=== PATIENT | male | born 1950 | race Caucasian/White ===

== ENCOUNTER 2016-06-10 11:12 | Observation (INO) ==
[2016-06-10] MEDS ORDERED: Vancomycin 1,000 MG in D5% in Water 250 ML IVPB ONE (11:26)
[2016-06-10] MEDS ORDERED: *HR* HYDROmorphone (PF) 1 MG/ML SYRINGE IVP ONE ×2 (11:28→13:32)
[2016-06-10] MEDS ORDERED: Ertapenem 1,000 MG in 0.9 % Sodium Chloride Mini Bag 100 ML IVPB STA (11:46)
[2016-06-10] MEDS ORDERED: Ondansetron 4 MG/2 ML VIAL IV ONE (11:52)
--- NOTE | 2016-06-10 11:56 | Emergency Department Note ---
Disposition Clinical Impression: Abdominal infection Disposition: Admitted As Inpatient Condition: Fair Referrals: NO,PCP [Non-Partnered Physician] - Time of Disposition: 15:17 General Adult HPI - General Chief complaint: ED Nausea/Vomiting/Diarrhea Stated complaint: n/v since inguinal hernia surgery last friday Time Seen by Provider: 06/10/16 11:17 Source: EMS Limitations: no limitations Nursing Notes Reviewed: Yes Vital Signs Reviewed: Yes - History of Present Illness HPI Narrative: Patient had right inguinal hernia surgery on Friday. States that he has not been able to eat or drink since then. Is complaining of nausea vomiting and abdominal pain. Does report passing blood yesterday per rectum. Denies any urinary complaints. Pain Scale: 9 - Related Data Home Medications Medication Instructions Recorded Confirmed Docusate [Colace] 100 mg PO DAILY PRN 06/06/16 06/06/16 Lactulose 10 gm PO DAILY 06/06/16 06/06/16 Polyethylene Glycol 3350 [MiraLAX] 17 gm PO DAILY 06/10/16 06/10/16 Previous Rx's Medication Instructions Recorded HYDROcodone/Acet 5/325 mg [[place] 1 tab PO Q4H PRN #30 tab 06/07/16 5-325 mg] Allergies Allergy/AdvReac Type Severity Reaction Status Date / Time aspirin Allergy Anaphylaxis Verified 06/10/16 14:27 NSAIDS (Non-Steroidal Allergy Anaphylaxis Verified 06/10/16 14:27 Anti-Inflamma Penicillins Allergy Anaphylaxis Verified 06/10/16 14:27 tramadol [From Ultram] Allergy Anaphylaxis Verified 06/10/16 14:27 Review of Systems: Patient denies any fevers or chills. He does report not being able to eat or drink Friday. He also reports nausea vomiting and abdominal pain diffusely since Friday. He did have right inguinal hernia surgery on Friday. He reports passing bright red blood per rectum yesterday. Denies any today. Denies any urinary symptoms or burning when urinating. He denies any shortness of breath or chest pain. He denies any swelling or edema to his extremities. He reports nausea and vomiting since Friday. All systems ED: reviewed and negative except as stated. Past Medical History - Past Medical History Medical history: Reports: coronary artery disease, myocardial infarction Surgical history: Reports: other Psychiatric history: Reports: no psych history - Social History Smoking Status: Former smoker Smokeless Tobacco Status: No Alcohol use: Reports: none Drug use: Reports: none Physical Exam - General Limitations: no limitations General appearance: alert, in no apparent distress - Head Head exam: atraumatic, normocephalic, normal inspection - Eye Eye exam: Present: normal appearance, PERRL, EOMI. Absent: scleral icterus - ENT ENT exam: normal exam, normal oropharynx, mucous membranes moist - Neck Neck exam: Present: normal inspection, full ROM, trachea midline - Chest Chest inspection: Present: normal inspection, symmetric chest wall rise - Respiratory Respiratory exam: Present: normal lung sounds bilaterally. Absent: respiratory distress - Cardiovascular Cardiovascular exam: Present: regular rate, normal rhythm, normal heart sounds - Abdominal Exam Abdominal exam: Present: soft, tenderness (Exquisitely tender to palpation throughout.), normal bowel sounds, other (Well-healing wound to right inguinal area. There is skin erythema and warmth extending down to his iliac crest and up to his rib cage also expanding horizontally approximately 5 cm.). Absent: distention - Male exam: Present: normal testicular lie, other (Extreme tenderness to scrotal palpation. No reddening or swelling to penis or testicles.) - Extremities Exam Extremities exam: Present: normal inspection, full ROM, normal capillary refill. Absent: tenderness, pedal edema - Neurological Exam Neurological exam: Present: alert, oriented X3 - Psychiatric Psychiatric exam: Present: normal affect, normal mood - Skin Skin exam: Present: warm, dry, intact, normal color Course Course Narrative: Now patient presenting to the emergency department with significant right lower quadrant pain. Right inguinal hernia surgery on Friday. He states he passed blood per his rectum yesterday. He states he is having no trouble urinating. However today his abdomen is reddened and warm to touch. He states that his incision site is draining. He is nauseated and vomiting. He has been unable to eat since surgery. Patient appears ill. His abdomen is red and warm from his inguinal canal to approximately the rib cage in approximately 5 cm across his abdomen. His abdomen is exquisitely tender to palpation. His testicles are also extremely tender to palpation. Suspect an infection. He denies any fevers. We will CT patient's abdomen contact Dr. Loera insert patient on antibiotic. - Reevaluation(s) Reevaluation #1: Patient requiring pain medication IV as well as nausea medication. His abdomen does appear to be infected. On CT scan it appears as if there is air in his abdominal wall. We will admit patient for possible infection. - Consultations Consultation #1: Spoke with Dr. Loera. He agrees with the treatment plan thus far and states he will see the patient. Time: 11:50 Vital Signs Temperature 98.0 F 06/10/16 11:15 Pulse Rate 64 06/10/16 11:15 Respiratory Rate 16 06/10/16 11:15 Blood Pressure 179/87 06/10/16 11:15 O2 Sat by Pulse Oximetry 98 06/10/16 11:15 Temperature 98.0 F 06/10/16 11:15 Pulse Rate 58 06/10/16 12:46 Respiratory Rate 18 06/10/16 12:46 Blood Pressure 161/85 06/10/16 12:46 O2 Sat by Pulse Oximetry 98 06/10/16 12:46 Oxygen Delivery Oxygen Delivery Room Air Medical Decision Making - Medical Records Medical records reviewed: Yes I reviewed the patient's medical records. - Lab Data Lab results reviewed: Yes I reviewed the patient's lab results. Result diagrams: 06/10/16 12:02 06/10/16 12:02 Lab Results 06/10/16 06/10/16 06/10/16 Range/Units 12:02 12:02 12:02 WBC 5.6 (4.3-11.1) K/mcL RBC 3.59 L (4.19-5.50) M/mcL Hgb 11.6 L (12.9-16.9) g/dL Hct 32.7 L (37.5-50.1) % MCV 91.1 (83.0-100.0) fL MCH 32.3 (28.0-33.3) pg MCHC 35.5 (31.6-35.5) g/dL RDW 11.8 (11.5-14.5) % Plt Count 187 (140-400) K/mcL MPV 9.5 (9.4-12.4) fL Immature Gran % 0.7 (0-4) % Seg Neutrophils % 66.9 % Lymphocytes % 16.2 % Monocytes % 10.6 % Eosinophils % 5.2 % Basophils % 0.4 % Neutrophils # 3.8 (1.6-8.9) K/mcL Lymphocytes # 0.9 (0.6-4.6) K/mcL Monocytes # 0.6 (0.0-1.3) K/mcL Eosinophils # 0.3 (0.0-0.6) K/mcL Basophils # 0.0 (0.0-0.2) K/mcL PT 13.1 H (9.4-12.1) Seconds INR 1.2 APTT 27.3 (26.0-36.0) Seconds Sodium 140 (136-145) mEq/L Potassium 4.2 (3.5-4.5) mEq/L Chloride 105 (98-109) mEq/L Carbon Dioxide 29 (19-29) mEq/L BUN 23 (8-26) mg/dL Creatinine 0.84 (0.72-1.25) mg/dL Est GFR ( Amer) > 60 (> 60) Est GFR (Non-Af Amer) > 60 (> 60) BUN/Creatinine Ratio 27 H (6-26) Glucose 108 H (70-99) mg/dL Calculated Osmolality 294 (280-300) Lactic Acid (0.5-2.2) mmol/L Calcium 9.3 (8.6-10.8) mg/dL Phosphorus 3.7 (2.3-4.7) mg/dL Magnesium 2.0 (1.6-2.6) mg/dL Total Bilirubin 0.5 (0.2-1.2) mg/dL Direct Bilirubin 0.2 (0.0-0.5) mg/dL Indirect Bilirubin 0.3 (0.0-1.2) mg/dL AST 20 (5-34) Units/L ALT 16 (0-55) Units/L Alkaline Phosphatase 60 (38-126) Units/L Troponin I (0-0.03) ng/mL Serum Total Protein 6.8 (6.0-8.3) g/dL Albumin 3.3 L (3.5-5.0) g/dL Globulin 3.5 (2.4-3.5) g/dL Albumin/Globulin Ratio 0.9 L (1.1-2.2) Lipase 29 (8-78) Units/L 06/10/16 06/10/16 06/10/16 Range/Units 12:02 12:02 13:25 WBC (4.3-11.1) K/mcL RBC (4.19-5.50) M/mcL Hgb (12.9-16.9) g/dL Hct (37.5-50.1) % MCV (83.0-100.0) fL MCH (28.0-33.3) pg MCHC (31.6-35.5) g/dL RDW (11.5-14.5) % Plt Count (140-400) K/mcL MPV (9.4-12.4) fL Immature Gran % (0-4) % Seg Neutrophils % % Lymphocytes % % Monocytes % % Eosinophils % % Basophils % % Neutrophils # (1.6-8.9) K/mcL Lymphocytes # (0.6-4.6) K/mcL Monocytes # (0.0-1.3) K/mcL Eosinophils # (0.0-0.6) K/mcL Basophils # (0.0-0.2) K/mcL PT (9.4-12.1) Seconds INR APTT (26.0-36.0) Seconds Sodium (136-145) mEq/L Potassium (3.5-4.5) mEq/L Chloride (98-109) mEq/L Carbon Dioxide (19-29) mEq/L BUN (8-26) mg/dL Creatinine (0.72-1.25) mg/dL Est GFR ( Amer) (> 60) Est GFR (Non-Af Amer) (> 60) BUN/Creatinine Ratio (6-26) Glucose (70-99) mg/dL Calculated Osmolality (280-300) Lactic Acid 0.9 0.7 (0.5-2.2) mmol/L Calcium (8.6-10.8) mg/dL Phosphorus (2.3-4.7) mg/dL Magnesium (1.6-2.6) mg/dL Total Bilirubin (0.2-1.2) mg/dL Direct Bilirubin (0.0-0.5) mg/dL Indirect Bilirubin (0.0-1.2) mg/dL AST (5-34) Units/L ALT (0-55) Units/L Alkaline Phosphatase (38-126) Units/L Troponin I 0.01 (0-0.03) ng/mL Serum Total Protein (6.0-8.3) g/dL Albumin (3.5-5.0) g/dL Globulin (2.4-3.5) g/dL Albumin/Globulin Ratio (1.1-2.2) Lipase (8-78) Units/L - Radiology Data Radiology results reviewed: Yes I reviewed the patient's radiology results. I reviewed the images and the radiologist report. - EKG Data EKG #1 EKG attestation: Yes I reviewed and interpreted this EKG. EKG results narrative: Sinus pericardia. 57. VA interval is 171. Your incarceration is 97. QTC is 434. QTC is 428. No signs of acute ischemia. No significant changes from prior EKG dated 06/06/2016. Attestation Statement - Attestation Attestation: I examined this patient and my medical decision-making was reviewed with the HALF BACKER/PA/Advanced Practice Nurse/Resident Physician. I agree with the documented findings, disposition and treatment plan as described except to the extent set forth below. Patient to the emergency department complaining of abdominal pain and rectal bleeding. Patient states he is also vomiting and cannot hold anything down. He had an inguinal hernia repair Don[place], 3 days ago. On exam he has tenderness and erythema around the incision in the right lower quadrant. The erythema extends up past his umbilicus. It also extends down over his testicles. Very tender to palpation. Plan. IV antibiotics started. His surgeon has been notified. CT pending at this time. Patient will be admitted to the hospital.
--- NOTE | 2016-06-10 12:11 | General Surg History&Physical ---
<Jay Kim - Last Filed: 06/10/16 15:23> Date of Encounter: 06/10/16 Time of Encounter: 12:40 Assessment and Plan (1) S/P hernia repair Current Visit: No Status: Acute Abdominal pain with nausea and vomiting after right sided inguinal hernia repair on 06/06/16. CT demonstrates suspected postsurgical changes along the anterior subcutaneous fat of the RLQ, just anterior and superior to the right inguinal canal, without evidence of a dranable fluid collection or postoperative abscess. Small bilateral inguinal hernias, right greater than left, with the right containing fat and a mild amount of fluid, though no evidence of bowel involvement or incarceration. The patient was started on ertapenem and vancomycin in the ED. Continue IV antibiotics. Continue IV fluids. Clear liquid diet if tolerated. NPO at midnight. If no improvement tomorrow the patient will go to surgery. (2) Nausea and vomiting Current Visit: Yes Status: Acute Zofran PRN Qualifiers: Vomiting type: unspecified Vomiting Intractability: non-intractable Qualified Code(s): R11.2 - Nausea with vomiting, unspecified (3) Pulmonary nodule Current Visit: Yes Status: Acute Nonspecific 6mm nodule within the left lower lobe with suggested followup in 6- 12 months, then at 18-24 months if no change. (4) DVT prophylaxis Current Visit: Yes Status: Acute Heparin SQ 5000 units Q12 hrs History of Present Illness Chief complaint: nausea and vomiting after hernia repair HPI: Mr. Duran is a 65 year old male who underwent right inguinal hernia repair on with Dr. Loera. He was not able to go home the same day after surgery as he did not have anyone to stay with him following the surgery. He was kept overnight as an outpatient in a bed and went home the following day without any complaints. He had a temporary pain pump in place and was instructed to remove it the day after his discharge. He was given Vicodin 5-300MG Q6 and Colace 100MG capsules while on narcotics as needed for constipation. He now returns to the emergency department for nausea and vomiting since this past Friday. He states that no matter what he tries to eat it comes right back up. He denies fevers, but states that he is shaking almost constantly, which is out of the ordinary for him. He states he has not had access to his pain medication. The patient states some people came into his trailer claiming they knew him. The patient had to use the restroom, and when he came out his pain medication was gone. He complains of severe abdominal pain that radiates to the right side of his groin. Past Med Surg Social Fam HX - Past Medical History Medical history: coronary artery disease, myocardial infarction Psychiatric history: no psych history - Past Surgical History Surgical History: angioplasty/stent (2 cardiac stents placed), herniorrhaphy (), orthopedic, other (left arm fracture repair 1975, left arm broken and surgically repaired in 1994) - Social History Smoking Status: Former smoker Smokeless Tobacco Status: No Alcohol use: none Drug use: none - Family History Father Living Status: Hx Family Cancer: Yes (lung) Mother Living Status: Hx Family Cancer: Yes Medications and Allergies Docusate [Colace] 100 mg PO DAILY PRN 06/06/16 [History] Lactulose 10 gm PO DAILY 06/06/16 [History] HYDROcodone/Acet 5/325 mg [[place] 5-325 mg] 1 tab PO Q4H PRN #30 tab 06/07/16 [Rx ] Polyethylene Glycol 3350 [MiraLAX] 17 gm PO DAILY 06/10/16 [History] Allergies aspirin Allergy (Verified 06/10/16 14:27) Anaphylaxis NSAIDS (Non-Steroidal Anti-Inflamma Allergy (Verified 06/10/16 14:27) Anaphylaxis Penicillins Allergy (Verified 06/10/16 14:27) Anaphylaxis tramadol [From Ultram] Allergy (Verified 06/10/16 14:27) Anaphylaxis Review of Systems All systems PM: A 10-system review of systems was performed and is negative for pertinent findings except as documented above in the HPI. - Constitutional other (shakiness), no fever(s), no headache(s) - EENT Nose, mouth and throat: no headache(s), no hoarseness - Cardiovascular no chest pain, no diaphoresis, no dyspnea, no edema, no pedal edema - Respiratory cough, no dyspnea - Gastrointestinal abdominal pain (right lower quadrant), nausea, vomiting, no hematemesis, no hematochezia - Genitourinary difficulty urinating (On Friday, since resolved), genital pain (on the right) - Musculoskeletal no arthralgias, no muscle cramps - Integumentary erythema - Neurological no dizziness, no headache(s) General Surgery Exam Initial Vital Signs Temp Pulse Resp BP Pulse Ox 98.0 F 64 16 179/87 98 06/10/16 11:15 06/10/16 11:15 06/10/16 11:15 06/10/16 11:15 06/10/16 11:15 - General physical appearance well developed, well nourished, no distress - Eyes normal ocular movement - ENT normal mucosa - Neck trachea midline - Respiratory normal respiratory effort, clear to auscultation - Cardiovascular Cardiovascular exam: Present: RRR - Abdomen Abdomen general surgery: Present: bowel sounds present, soft, tender (exquisite tenderness to the right lower quadrant and inguinal region with overlying mild erythema) - Incision Incision: Present: clean and dry, intact - Genitourinary tender: right (no overlying erythema or visible swelling of the scrotum) - Integumentary Integumentary general surgery: Present: warm and dry (mild pink discoloration over the right lower quadrant of the abdomen) - Neurologic Present: CN 2-12 grossly intact - Musculoskeletal Present: normal posture - Psychiatric Psychiatric general surgery: Present: appropriate, oriented to person, oriented to place, oriented to time, speech is normal, memory intact Results - Labs 06/10/16 12:02 06/10/16 12:02 All other labs normal. - Attending Attestation I examined this patient and my medical decision-making was reviewed with the MEMBER SERVICES COORDINATOR/PA/Advanced Practice Nurse/Resident Physician. I agree with the documented findings, disposition and treatment plan as described except to the extent set forth below. <Dre Loera - Last Filed: 06/10/16 15:32> Date of Encounter: 06/10/16 History of Present Illness HPI: Mr. Duran is a 65 year old male Review of Systems All systems PM: A 10-system review of systems was performed and is negative for pertinent findings except as documented above in the HPI. General Surgery Exam Initial Vital Signs Temp Pulse Resp BP Pulse Ox 98.0 F 64 16 179/87 98 06/10/16 11:15 06/10/16 11:15 06/10/16 11:15 06/10/16 11:15 06/10/16 11:15 Results - Labs 06/10/16 12:02 06/10/16 12:02 Abnormal lab results RBC 3.59 M/mcL (4.19-5.50) L 06/10/16 12:02 Hgb 11.6 g/dL (12.9-16.9) L 06/10/16 12:02 Hct 32.7 % (37.5-50.1) L 06/10/16 12:02 PT 13.1 Seconds (9.4-12.1) H 06/10/16 12:02 BUN/Creatinine Ratio 27 (6-26) H 06/10/16 12:02 Glucose 108 mg/dL (70-99) H 06/10/16 12:02 Albumin 3.3 g/dL (3.5-5.0) L 06/10/16 12:02 Albumin/Globulin Ratio 0.9 (1.1-2.2) L 06/10/16 12:02 All other labs normal. - Attending Attestation The patient was seen and evaluated in the emergency room with resident. I personally reviewed the CAT scan. In addition to the radiologist's findings I am concerned that there is a small layer of air along the anterior abdominal wall. Although this may be postoperative change this could also be an indication of colon injury or infection. I also noticed that there are some inflammatory changes beside the cecum. The differential diagnosis includes a missed Soto's phenomenon, or damage to the cecum and some other way including transabdominal stitch or missed sliding component. I plan to place the patient on antibiotics overnight. If he does not make significant improvement I will plan on laparoscopy and directed wound exploration. Dre Loera MD FACS
[2016-06-10 12:12] LABS: Basophils % 0.4 %; Eosinophils # 0.3 K/mcL (0.0-0.6); Eosinophils % 5.2 %; Hematocrit 32.7 % (37.5-50.1); Hemoglobin 11.6 g/dL (12.9-16.9); Immature Granulocytes % 0.7 % (0-4); Lymphocytes # 0.9 K/mcL (0.6-4.6); Lymphocytes % 16.2 %; Mean Corpuscular HGB Conc 35.5 g/dL (31.6-35.5); Mean Corpuscular Hemoglobin 32.3 pg (28.0-33.3); Mean Corpuscular Volume 91.1 fL (83.0-100.0); Mean Platelet Volume 9.5 fL (9.4-12.4); Monocytes # 0.6 K/mcL (0.0-1.3); Monocytes % 10.6 %; Platelet Count 187 K/mcL (140-400); Red Blood Count 3.59 M/mcL (4.19-5.50); Red Cell Distribution Width 11.8 % (11.5-14.5); Segmented Neutrophils % 66.9 %
[2016-06-10 12:15] LABS: Neutrophils # 3.8 K/mcL (1.6-8.9)
[2016-06-10 12:17] LABS: INR 1.2; Prothrombin Time 13.1 Seconds (9.4-12.1)
[2016-06-10 12:19] LABS: Activated Partial Thrombo Time 27.3 Seconds (26.0-36.0)
[2016-06-10 12:25] LABS: Alanine Aminotransferase 16 Units/L (0-55); Albumin 3.3 g/dL (3.5-5.0); Albumin/Globulin Ratio 0.9 (1.1-2.2); Alkaline Phosphatase 60 Units/L (38-126); Aspartate Amino Transferase 20 Units/L (5-34); BUN/Creatinine Ratio 27 (6-26); Bilirubin,Direct 0.2 mg/dL (0.0-0.5); Bilirubin,Indirect 0.3 mg/dL (0.0-1.2); Bilirubin,Total 0.5 mg/dL (0.2-1.2); Blood Urea Nitrogen 23 mg/dL (8-26); Calcium 9.3 mg/dL (8.6-10.8); Carbon Dioxide 29 mEq/L (19-29); Chloride 105 mEq/L (98-109); Globulin 3.5 g/dL (2.4-3.5); Glucose 108 mg/dL (70-99); Lipase 29 Units/L (8-78); Osmolality,Calculated 294 (280-300); Phosphorous 3.7 mg/dL (2.3-4.7); Potassium 4.2 mEq/L (3.5-4.5); Sodium 140 mEq/L (136-145); Total Protein 6.8 g/dL (6.0-8.3); eGFR For African Americans > 60 (> 60); eGFR For Non-African Americans > 60 (> 60)
[2016-06-10] MEDS: 0.9 % Sodium Chloride 1,000 ML IVC SCH ×3 (12:51→20:53)
[2016-06-10] MEDS ORDERED: Ondansetron 4 MG/2 ML VIAL IVP ONE (13:55)
[2016-06-10] MEDS ORDERED: *HR* HYDROmorphone (PF) 1 MG/ML SYRINGE IVP PRN (14:30)
[2016-06-10] MEDS ORDERED: Ondansetron 4 MG/2 ML VIAL IVP PRN (14:36)
[2016-06-10] MEDS ORDERED: Vancomycin 1,000 MG in D5% in Water 250 ML IVPB SCH (15:00)
[2016-06-10 15:43] LABS: Bilirubin,Urine Negative (Negative); Blood,Urine Negative (Negative); Clarity,Urine Clear (Clear); Color,Urine Yellow (Yellow); Glucose,Urine (UA) 100 mg/dL (Normal); Ketones,Urine Negative (Negative); Leukocyte Esterase,Urine Negative (Negative); Nitrite,Urine Negative (Negative); PH,Urine 6.5 pH Units (5.0-8.0); Protein,Urine Negative (Neg-Trace); Specific Gravity,Urine > 1.030 (1.010-1.025); Urobilinogen,Urine Normal (Normal)
[2016-06-10] MEDS: *HR* Heparin 5,000 UNIT/ML VIAL SQ SCH (20:51)
[2016-06-11] MEDS: Vancomycin 1,000 MG in D5% in Water 250 ML IVPB SCH ×2 (03:25→14:19)
[2016-06-11] MEDS: *HR* HYDROmorphone (PF) 1 MG/ML SYRINGE IVP PRN ×2 (03:29→08:24)
[2016-06-11] MEDS: *HR* Heparin 5,000 UNIT/ML VIAL SQ SCH ×2 (05:11→18:13)
[2016-06-11] MEDS: 0.9 % Sodium Chloride 1,000 ML IVC SCH ×4 (05:11→16:42)
[2016-06-11 06:01] LABS: Basophils % 0.8 %; Eosinophils # 0.4 K/mcL (0.0-0.6); Eosinophils % 9.1 %; Hematocrit 26.8 % (37.5-50.1); Immature Granulocytes % 0.5 % (0-4); Lymphocytes # 0.9 K/mcL (0.6-4.6); Lymphocytes % 24.2 %; Mean Corpuscular HGB Conc 35.4 g/dL (31.6-35.5); Mean Corpuscular Hemoglobin 32.8 pg (28.0-33.3); Mean Corpuscular Volume 92.4 fL (83.0-100.0); Mean Platelet Volume 9.2 fL (9.4-12.4); Monocytes # 0.4 K/mcL (0.0-1.3); Monocytes % 10.6 %; Neutrophils # 2.1 K/mcL (1.6-8.9); Platelet Count 141 K/mcL (140-400); Red Cell Distribution Width 11.9 % (11.5-14.5); Segmented Neutrophils % 54.8 %
[2016-06-11 06:11] LABS: Hemoglobin 9.5 g/dL (12.9-16.9)
[2016-06-11 06:17] LABS: BUN/Creatinine Ratio 17 (6-26); Blood Urea Nitrogen 13 mg/dL (8-26); Carbon Dioxide 25 mEq/L (19-29); Chloride 108 mEq/L (98-109); Glucose 98 mg/dL (70-99); Osmolality,Calculated 284 (280-300); Potassium 3.7 mEq/L (3.5-4.5); Sodium 137 mEq/L (136-145); eGFR For African Americans > 60 (> 60); eGFR For Non-African Americans > 60 (> 60)
--- NOTE | 2016-06-11 07:48 | General Surgery Progress Note ---
<Jay Kim - Last Filed: 06/11/16 09:59> Date of Encounter: 06/11/16 Time of Encounter: 06:45 - Assessment and Plan (1) S/P hernia repair Current Visit: No Status: Acute The patient is improving on conservative therapy, no surgery at this time. Continue Vancomycin day #2 and ertapenem day #2 Continue IV fluids Continue pain control. Resume clear liquid diet as tolerated. (2) Nausea and vomiting Current Visit: Yes Status: Acute Zofran PRN Qualifiers: Vomiting type: unspecified Vomiting Intractability: non-intractable Qualified Code(s): R11.2 - Nausea with vomiting, unspecified (3) Pulmonary nodule Current Visit: Yes Status: Acute Nonspecific 6mm nodule within the left lower lobe with suggested followup in 6- 12 months, then at 18-24 months if no change. (4) DVT prophylaxis Current Visit: Yes Status: Acute Heparin SQ 5000 units Q12 hrs Subjective Patient reports: no new complaints, feels better, pain is less, voiding w/o difficulty, flatus, no bowel movement, afebrile Narrative: The patient states he was able to tolerate his clear liquids, specifically the jello, without any nausea or vomiting. He states he feels much better than when he arrived to the emergency department yesterday. Objective Vital Signs - Last 8 Hours Temp Pulse Resp BP Pulse Ox 06/11/16 07:04 96 06/11/16 04:27 98.6 F 57 16 110/52 96 06/10/16 23:53 98.3 F 51 14 113/56 95 Intake and Output 06/10/16 06/10/16 06/11/16 15:59 23:59 07:59 Intake Total 1100 / 1100 0 / 0 1250 / 1250 Output Total 750 / 750 0 / 0 Balance 1100 / 1100 -750 / -750 1250 / 1250 Intake: IV Fluids 1100 / 1100 1250 / 1250 0.9 % Sodium Chloride 1, 1000 / 1000 1000 / 1000 000 ML @ 100 mls/hr IVC . Q10H [facility] Rx#:[id number] INVanz 1,000 MG In 0.9 % 100 / 100 Sodium Chloride (Mini-Bag +) 100 ML @ 100 mls/hr IVPB DAILY [facility] Rx#: [id number] Vancocin 1,000 MG In 250 / 250 Dextrose 5% 250 ML @ 167 mls/hr IVPB Q12H [facility] Rx#: [id number] Oral 0 / 0 0 / 0 Output: Urine 750 / 750 0 / 0 Other: Weight 57.3 kg Blood Glucose* 105 - General physical appearance well developed, well nourished, no distress - Eyes normal ocular movement - ENT normal mucosa - Neck Neck exam: trachea midline - Respiratory normal respiratory effort, clear to auscultation - Cardiovascular Cardiovascular exam: Present: RRR - Abdomen Abdomen: Present: bowel sounds present, soft, tender (very tender to the right lower quadrant and inguinal region on the right.) - Incision Incision: Present: clean and dry, intact - Integumentary no rash, no abnormal pigmentation - Neurologic CN 2-12 grossly intact - Musculoskeletal normal posture - Psychiatric oriented to time, oriented to person, oriented to place, speech is normal, memory intact - Labs 06/11/16 05:49 06/11/16 05:49 Diabetes panel 06/11/16 Range/Units 05:49 Sodium 137 (136-145) mEq/L Potassium 3.7 (3.5-4.5) mEq/L Chloride 108 (98-109) mEq/L Carbon Dioxide 25 (19-29) mEq/L BUN 13 D (8-26) mg/dL Creatinine 0.78 (0.72-1.25) mg/dL Glucose 98 (70-99) mg/dL Calcium 8.0 L (8.6-10.8) mg/dL Calcium panel 06/11/16 Range/Units 05:49 Calcium 8.0 L (8.6-10.8) mg/dL Pituitary panel 06/11/16 Range/Units 05:49 Sodium 137 (136-145) mEq/L Potassium 3.7 (3.5-4.5) mEq/L Chloride 108 (98-109) mEq/L Carbon Dioxide 25 (19-29) mEq/L BUN 13 D (8-26) mg/dL Creatinine 0.78 (0.72-1.25) mg/dL Glucose 98 (70-99) mg/dL Calcium 8.0 L (8.6-10.8) mg/dL Adrenal panel 06/11/16 Range/Units 05:49 Sodium 137 (136-145) mEq/L Potassium 3.7 (3.5-4.5) mEq/L Chloride 108 (98-109) mEq/L Carbon Dioxide 25 (19-29) mEq/L BUN 13 D (8-26) mg/dL Creatinine 0.78 (0.72-1.25) mg/dL Glucose 98 (70-99) mg/dL Calcium 8.0 L (8.6-10.8) mg/dL Consult Discharge Plan - Plan Referrals: NO,PCP [Non-Partnered Physician] - - Attending Attestation I examined this patient and my medical decision-making was reviewed with the SCHOOL OF NURSING DIRECTOR/PA/Advanced Practice Nurse/Resident Physician. I agree with the documented findings, disposition and treatment plan as described except to the extent set forth below. <Tiffany Loeran Loida - Last Filed: 06/11/16 15:47> Date of Encounter: 06/11/16 Objective Intake and Output 06/10/16 06/11/16 06/11/16 23:59 07:59 15:59 Intake Total 0 / 0 1476 / 1476 982 / 982 Output Total 750 / 750 0 / 0 450 / 450 Balance -750 / -750 1476 / 1476 532 / 532 Intake: IV Fluids 1476 / 1476 502 / 502 0.9 % Sodium Chloride 1, 1226 / 1226 402 / 402 000 ML @ 100 mls/hr IVC . Q10H [facility] Rx#:[id number] INVanz 1,000 MG In 0.9 % 100 / 100 Sodium Chloride (Mini-Bag +) 100 ML @ 100 mls/hr IVPB DAILY [facility] Rx#: [id number] Vancocin 1,000 MG In 250 / 250 Dextrose 5% 250 ML @ 167 mls/hr IVPB Q12H [facility] Rx#: [id number] Oral 0 / 0 0 / 0 480 / 480 Output: Urine 750 / 750 0 / 0 450 / 450 Other: Stool Size Large Stool Consistency formed Stool Color Brown Weight 57.3 kg Blood Glucose* 105 - Labs 06/11/16 05:49 06/11/16 05:49 Diabetes panel 06/11/16 Range/Units 05:49 Sodium 137 (136-145) mEq/L Potassium 3.7 (3.5-4.5) mEq/L Chloride 108 (98-109) mEq/L Carbon Dioxide 25 (19-29) mEq/L BUN 13 D (8-26) mg/dL Creatinine 0.78 (0.72-1.25) mg/dL Glucose 98 (70-99) mg/dL Calcium 8.0 L (8.6-10.8) mg/dL Calcium panel 06/11/16 Range/Units 05:49 Calcium 8.0 L (8.6-10.8) mg/dL Pituitary panel 06/11/16 Range/Units 05:49 Sodium 137 (136-145) mEq/L Potassium 3.7 (3.5-4.5) mEq/L Chloride 108 (98-109) mEq/L Carbon Dioxide 25 (19-29) mEq/L BUN 13 D (8-26) mg/dL Creatinine 0.78 (0.72-1.25) mg/dL Glucose 98 (70-99) mg/dL Calcium 8.0 L (8.6-10.8) mg/dL Adrenal panel 06/11/16 Range/Units 05:49 Sodium 137 (136-145) mEq/L Potassium 3.7 (3.5-4.5) mEq/L Chloride 108 (98-109) mEq/L Carbon Dioxide 25 (19-29) mEq/L BUN 13 D (8-26) mg/dL Creatinine 0.78 (0.72-1.25) mg/dL Glucose 98 (70-99) mg/dL Calcium 8.0 L (8.6-10.8) mg/dL - Attending Attestation The patient is seen and evaluated with the resident on rounds today. His condition has significantly improved. His pain is less. His white blood cell count is not elevated. I am unclear as to the etiology of his pain and discomfort. We will continue to treat him with antibiotic therapy even though he does not have a leukocytosis. I will also add ice therapy and wound. Overall improved Dre Loera MD FACS
[2016-06-11] MEDS: Pantoprazole 40 MG VIAL IVP SCH (07:52)
[2016-06-11] MEDS: Ertapenem 1,000 MG in 0.9 % Sodium Chloride Mini Bag 100 ML IVPB SCH (07:52)
[2016-06-11] MEDS: Ondansetron 4 MG/2 ML VIAL IVP PRN (09:26)
--- NOTE | 2016-06-11 17:55 | Electrocardiograph Report ---
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
[2016-06-12] MEDS: Vancomycin 1,000 MG in D5% in Water 250 ML IVPB SCH ×2 (03:12→14:17)
[2016-06-12] MEDS: 0.9 % Sodium Chloride 1,000 ML IVC SCH ×2 (03:13→14:16)
--- NOTE | 2016-06-12 07:58 | General Surgery Progress Note ---
<Jay Kim - Last Filed: 06/12/16 08:55> Date of Encounter: 06/12/16 Time of Encounter: 06:55 - Assessment and Plan (1) S/P hernia repair Status: Acute The patient continues to improve on conservative therapy. Continue Vancomycin day #3 and ertapenem day #3 Continue IV fluids Continue pain control. Continue clear liquid diet as tolerated. CBC demonstrates normal white count of 4.3, will continue to monitor. (2) Nausea and vomiting Status: Acute Zofran PRN Qualifiers: Vomiting type: unspecified Vomiting Intractability: non-intractable Qualified Code(s): R11.2 - Nausea with vomiting, unspecified (3) Pulmonary nodule Status: Acute Nonspecific 6mm nodule within the left lower lobe with suggested followup in 6- 12 months, then at 18-24 months if no change. (4) DVT prophylaxis Status: Acute Heparin SQ 5000 units Q12 hrs Subjective Patient reports: no new complaints, feels better, pain is less, tolerating liquids well, voiding w/o difficulty, flatus, bowel movement, afebrile Narrative: The patient reported some pain during my examination of his abdomen, and afterwards he had a bout of diarrhea, but this relieved his pain when he was rounded on again by myself with Dr. Luz Maria campos. Objective Vital Signs - Last 8 Hours Temp Pulse Resp BP Pulse Ox 06/12/16 07:46 97.9 F 54 14 153/74 94 L 06/12/16 03:30 98.2 F 55 16 120/61 94 L Intake and Output 06/11/16 06/11/16 06/12/16 15:59 23:59 07:59 Intake Total 1232 / 1232 672 / 672 1000 / 1000 Output Total 450 / 450 700 / 700 725 / 725 Balance 782 / 782 -28 / -28 275 / 275 Intake: IV Fluids 752 / 752 372 / 372 1000 / 1000 0.9 % Sodium Chloride 1, 402 / 402 372 / 372 1000 / 1000 000 ML @ 100 mls/hr IVC . Q10H [facility] Rx#:[id number] INVanz 1,000 MG In 0.9 % 100 / 100 Sodium Chloride (Mini-Bag +) 100 ML @ 100 mls/hr IVPB DAILY [facility] Rx#: [id number] Vancocin 1,000 MG In 250 / 250 Dextrose 5% 250 ML @ 167 mls/hr IVPB Q12H [facility] Rx#: [id number] Oral 480 / 480 300 / 300 0 / 0 Output: Urine 450 / 450 700 / 700 725 / 725 Other: Stool Size Large Large Stool Consistency formed soft Stool Color Brown Brown # Voids 1 Weight 56.6 kg Patient Weight 06/12/16 23:59 Weight 56.6 kg - General physical appearance well developed, well nourished, no distress - Eyes normal ocular movement - ENT normal mucosa - Neck Neck exam: trachea midline - Respiratory normal respiratory effort, clear to auscultation - Cardiovascular Cardiovascular exam: Present: RRR - Abdomen Abdomen: Present: bowel sounds present, soft, non tender - Incision Incision: Present: clean and dry, intact - Integumentary no rash - Neurologic CN 2-12 grossly intact - Musculoskeletal normal posture - Psychiatric oriented to time, oriented to person, oriented to place, speech is normal, memory intact - Labs 06/12/16 07:59 06/11/16 05:49 Consult Discharge Plan - Plan Additional Instructions: #1 may shower, no tub bath for 1 weeks #2 wash incisions with soap and water and pat dry daily #3 no lifting, pushing, pulling more than 15 pounds for the next 4 weeks and then 25lb. for 2 weeks. 5 weeks from now- no restrictions #4 no driving until off narcotics for 24 hours and able to safely react in the car #5 may climb stairs Referrals: Kendy Jean, UNIT COORDINATOR [Advanced Practice Nurse] - 06/17/16 9:00 am (Already scheduled from previous discharge.) NO,PCP [Non-Partnered Physician] - Prescriptions: Oxycodone HCl/Acetaminophen [Percocet 5-325 mg Tablet] 1 each PO Q6HR PRN #24 tablet PRN Reason: Pain Docusate [Colace] 100 mg PO DAILY #20 capsule - Attending Attestation I examined this patient and my medical decision-making was reviewed with the INTENSIVE CARE NURSE/PA/Advanced Practice Nurse/Resident Physician. I agree with the documented findings, disposition and treatment plan as described except to the extent set forth below. <Dre Loera - Last Filed: 06/14/16 08:20> Date of Encounter: 06/12/16 Objective Vital Signs - Last 8 Hours Temp Pulse Resp BP Pulse Ox 06/12/16 11:45 98.5 F 54 14 161/85 98 Intake and Output 06/11/16 06/12/16 06/12/16 23:59 07:59 15:59 Intake Total 672 / 672 1000 / 1000 2720 / 2720 Output Total 700 / 700 725 / 725 Balance -28 / -28 275 / 275 2720 / 2720 Intake: IV Fluids 372 / 372 1000 / 1000 2600 / 2600 0.9 % Sodium Chloride 1, 372 / 372 1000 / 1000 1000 / 1000 000 ML @ 100 mls/hr IVC . Q10H [facility] Rx#:[id number] INVanz 1,000 MG In 0.9 % 100 / 100 Sodium Chloride (Mini-Bag +) 100 ML @ 100 mls/hr IVPB DAILY [facility] Rx#: [id number] Vancocin 1,000 MG In 250 / 250 Dextrose 5% 250 ML @ 167 mls/hr IVPB Q12H [facility] Rx#: [id number] Oral 300 / 300 0 / 0 120 / 120 Output: Urine 700 / 700 725 / 725 Other: Meal Breakfast Stool Size Large Stool Consistency soft Stool Color Brown # Voids 1 Weight 56.6 kg Patient Weight 06/12/16 23:59 Weight 56.6 kg - Labs 06/13/16 05:12 06/11/16 05:49 - Attending Attestation The patient was seen and evaluated on morning rounds with the resident. His overall condition is much improved. He has very little abdominal wall pain. He did have an explosive episode of diarrhea related feel better. He continues to be afebrile no leukocytosis. Continue his antibiotics for day if he is asymptomatic he will be discharged tomorrow Dre Loera MD FACS.
[2016-06-12 08:35] LABS: Basophils % 0.5 %; Eosinophils # 0.3 K/mcL (0.0-0.6); Eosinophils % 5.8 %; Hematocrit 28.3 % (37.5-50.1); Hemoglobin 10.1 g/dL (12.9-16.9); Immature Granulocytes % 0.5 % (0-4); Lymphocytes # 0.6 K/mcL (0.6-4.6); Lymphocytes % 14.7 %; Mean Corpuscular HGB Conc 35.7 g/dL (31.6-35.5); Mean Corpuscular Hemoglobin 32.4 pg (28.0-33.3); Mean Corpuscular Volume 90.7 fL (83.0-100.0); Mean Platelet Volume 9.2 fL (9.4-12.4); Monocytes # 0.5 K/mcL (0.0-1.3); Monocytes % 11.4 %; Neutrophils # 2.9 K/mcL (1.6-8.9); Platelet Count 176 K/mcL (140-400); Red Blood Count 3.12 M/mcL (4.19-5.50); Red Cell Distribution Width 11.5 % (11.5-14.5); Segmented Neutrophils % 67.1 %
[2016-06-12] MEDS: Ertapenem 1,000 MG in 0.9 % Sodium Chloride Mini Bag 100 ML IVPB SCH (08:40)
[2016-06-12] MEDS: *HR* Heparin 5,000 UNIT/ML VIAL SQ SCH ×2 (08:41→19:53)
[2016-06-12] MEDS: Pantoprazole 40 MG VIAL IVP SCH (08:42)
[2016-06-13] MEDS: 0.9 % Sodium Chloride 1,000 ML IVC SCH (05:22)
[2016-06-13] MEDS: Vancomycin 1,000 MG in D5% in Water 250 ML IVPB SCH (05:25)
[2016-06-13] MEDS: *HR* Heparin 5,000 UNIT/ML VIAL SQ SCH (06:09)
[2016-06-13 06:24] LABS: Basophils % 0.3 %; Eosinophils # 0.2 K/mcL (0.0-0.6); Eosinophils % 6.7 %; Hematocrit 26.7 % (37.5-50.1); Hemoglobin 9.6 g/dL (12.9-16.9); Immature Granulocytes % 0.8 % (0-4); Immature Platelets 2.8 % (1.1-6.1); Lymphocytes % 27.2 %; Mean Corpuscular Hemoglobin 32.2 pg (28.0-33.3); Mean Corpuscular Volume 89.6 fL (83.0-100.0); Mean Platelet Volume 9.6 fL (9.4-12.4); Monocytes # 0.5 K/mcL (0.0-1.3); Monocytes % 14.7 %; Neutrophils # 1.8 K/mcL (1.6-8.9); Platelet Count 169 K/mcL (140-400); Red Blood Count 2.98 M/mcL (4.19-5.50); Red Cell Distribution Width 11.7 % (11.5-14.5); Segmented Neutrophils % 50.3 %
--- NOTE | 2016-06-13 07:16 | Discharge Summary ---
<Jay Kim - Last Filed: 06/13/16 07:13> Date of Encounter: 06/13/16 Time of Encounter: 06:40 - Discharge Diagnosis (1) S/P hernia repair Priority: Primary Status: Acute (2) Nausea and vomiting Priority: Secondary Status: Resolved Qualifiers: Vomiting type: unspecified Vomiting Intractability: non-intractable Qualified Code(s): R11.2 - Nausea with vomiting, unspecified (3) Pulmonary nodule Priority: Secondary Status: Chronic (4) DVT prophylaxis Priority: Secondary Status: Resolved - Discharge Medications Prescriptions: Oxycodone HCl/Acetaminophen [Percocet 5-325 mg Tablet] 1 each PO Q6HR PRN #24 tablet PRN Reason: Pain Docusate [Colace] 100 mg PO DAILY #20 capsule Home Medications: Docusate [Colace] 100 mg PO DAILY PRN 06/06/16 [History] Lactulose 10 gm PO DAILY 06/06/16 [History] HYDROcodone/Acet 5/325 mg [[place] 5-325 mg] 1 tab PO Q4H PRN #30 tab 06/07/16 [Rx ] Polyethylene Glycol 3350 [MiraLAX] 17 gm PO DAILY 06/10/16 [History] Docusate [Colace] 100 mg PO DAILY #20 capsule 06/13/16 [Rx] Oxycodone HCl/Acetaminophen [Percocet 5-325 mg Tablet] 1 each PO Q6HR PRN #24 tablet 06/13/16 [Rx] Allergies/Adverse Reactions: Allergies aspirin Allergy (Verified 06/10/16 14:27) Anaphylaxis NSAIDS (Non-Steroidal Anti-Inflamma Allergy (Verified 06/10/16 14:27) Anaphylaxis Penicillins Allergy (Verified 06/10/16 14:27) Anaphylaxis tramadol [From Ultram] Allergy (Verified 06/10/16 14:27) Anaphylaxis General Surgery Exam Initial Vital Signs Temp Pulse Resp BP Pulse Ox 98.0 F 64 16 179/87 98 06/10/16 11:15 06/10/16 11:15 06/10/16 11:15 06/10/16 11:15 06/10/16 11:15 - General physical appearance well developed, well nourished, no distress - Eyes normal ocular movement - ENT normal mucosa, atraumatic, normocephalic - Neck trachea midline - Respiratory normal respiratory effort, clear to auscultation - Cardiovascular Cardiovascular exam: Present: RRR - Abdomen Abdomen general surgery: Present: bowel sounds present, soft, non tender - Incision Incision: Present: clean and dry, intact - Integumentary Integumentary general surgery: Present: warm and dry - Neurologic Present: CN 2-12 grossly intact - Musculoskeletal Present: normal posture - Psychiatric Psychiatric general surgery: Present: appropriate, oriented to person, oriented to place, oriented to time, speech is normal, memory intact Date of admission: 06/10/16 13:25 Primary care physician: Lizbet Zarco CNP Consults: 06/10/16 13:34 Consult to Histology Technologist [CONS] Routine Reason for SW Consult: home health evaluation 06/11/16 09:25 OT [Consult to Occupational Therapy] [CONS] Routine Comment: Evaluate, develop and implement POC PT [Consult to Physical Therapy] [CONS] Routine Comment: Evaluate, develop and implement POC Discharging clinician: Dre Loera Anticipated date of discharge: 06/13/16 - Patient Status Disposition: Home, Self-Care Condition: Fair Functional capacity at discharge: independent ambulation - Discharge Instructions Follow Up With: NO,PCP [Non-Partnered Physician] - Kendy Jean W[employer]ING RELAY ADJUSTER [Advanced Practice Nurse] - 06/17/16 9:00 am (Already scheduled from previous discharge.) Additional Instructions: #1 may shower, no tub bath for 1 weeks #2 wash incisions with soap and water and pat dry daily #3 no lifting, pushing, pulling more than 15 pounds for the next 4 weeks and then 25lb. for 2 weeks. 5 weeks from now- no restrictions #4 no driving until off narcotics for 24 hours and able to safely react in the car #5 may climb stairs - Diet and Activity Activity: increase activity as tolerated Diet: advance to your usual diet - Hospital Course Hospital course: Mr. Duran is a 65 year old male who presented on 06/10 after having a right sided inguinal hernia repair on 06/06. He complained of intense pain in his right lower quadrant of his abdomen, and stated that the was not able to tolerate any food over the weekend after his discharge. On arrival he was found to have an exquisitely tender abdomen with slight swelling with associated nausea. He was treated conservatively with antibiotics of Vancomycin and ertepenem for 4 days with great symptomatic improvement. He resumed bowel function and was able to tolerate food without nausea or vomiting. His pain has greatly decreased and he states he is ready to be up and moving around. All questions were answered and the patient is understanding and agreeable to the plan of care. - Time Spent with Patient Total time spent providing and/or coordinating discharge services: Less than 30 minutes Labs on day of discharge: Labs from last 24 hours 06/13/16 06/12/16 06/12/16 05:12 13:15 07:59 WBC 3.6 L 4.3 RBC 2.98 L 3.12 L Hgb 9.6 L 10.1 L Hct 26.7 L 28.3 L MCV 89.6 90.7 MCH 32.2 32.4 MCHC 36.0 H 35.7 H RDW 11.7 11.5 Plt Count 169 176 MPV 9.6 9.2 L Immature Gran % 0.8 0.5 Seg Neutrophils % 50.3 67.1 Lymphocytes % 27.2 14.7 Monocytes % 14.7 11.4 Eosinophils % 6.7 5.8 Basophils % 0.3 0.5 Neutrophils # 1.8 2.9 Lymphocytes # 1.0 0.6 Monocytes # 0.5 0.5 Eosinophils # 0.2 0.3 Basophils # 0.0 0.0 Immature Plt Fraction 2.8 2.0 Vancomycin Trough 13.6 - Attending Attestation I examined this patient and my medical decision-making was reviewed with the BUILDING INSULATION SUPERVISOR/PA/Advanced Practice Nurse/Resident Physician. I agree with the documented findings, disposition and treatment plan as described except to the extent set forth below. <Dre Loera - Last Filed: 06/14/16 08:24> Date of Encounter: 06/13/16 General Surgery Exam Initial Vital Signs Temp Pulse Resp BP Pulse Ox 98.0 F 64 16 179/87 98 06/10/16 11:15 06/10/16 11:15 06/10/16 11:15 06/10/16 11:15 06/10/16 11:15 Date of admission: 06/10/16 13:25 Primary care physician: Lizbet Zarco CNP Consults: 06/10/16 13:34 Consult to Histology Technologist [CONS] Routine Reason for SW Consult: home health evaluation 06/11/16 09:25 OT [Consult to Occupational Therapy] [CONS] Routine Comment: Evaluate, develop and implement POC PT [Consult to Physical Therapy] [CONS] Routine Comment: Evaluate, develop and implement POC - Hospital Course Hospital course: Mr. Duran is a 65 year old male - Time Spent with Patient Total time spent providing and/or coordinating discharge services: - Attending Attestation The patient is seen and evaluated with rest in the morning. His acute pain syndrome is completely resolved. Etiology is unclear. He is stable and ready for discharge home. I will see him back in the office in 2 weeks. Dre Loera MD FACS
[2016-06-13 08:03] VITALS: BP 161/78
[2016-06-13] MEDS: Ertapenem 1,000 MG in 0.9 % Sodium Chloride Mini Bag 100 ML IVPB SCH (09:51)
[2016-06-13] MEDS: Ondansetron 4 MG/2 ML VIAL IVP PRN (09:58)
[2016-06-13] MEDS: Pantoprazole 40 MG VIAL IVP SCH (10:13)
[2016-06-13] MEDS ORDERED: Aminoglycoside Consult 1 EACH MC ONE (10:44)
== END 2016-06-13 10:45 | disposition home or self-care (01) ==
LOC: EMEROO 11:12 → 3ANU 11:12
PROVIDERS: ADMIT Surgery; ATTEND Surgery